=== PATIENT | female | born 1980 | race Caucasian/White ===

== ENCOUNTER 2017-11-30 08:00 | Day surgery (SDC) | payer MEDICAID ==
[2017-11-30] MEDS ORDERED: LIDOCAINE 1% 2 ML INJ ID PRN (08:22)
[2017-11-30] MEDS ORDERED: LR 1,000 ML IV ONE (08:22)
--- NOTE | 2017-11-30 09:26 | PDHPUP ---
History & Physical Update H&P update statement: This history and physical update is based on an assessment of the patient which was completed after admission or registration (within 24 hours), but prior to the surgery/procedure. H&P update: H&P reviewed & patient examined, no change in patient's condition since H&P completed
[2017-11-30] MEDS ORDERED: MIDAZOLAM 2 MG/2 ML VIAL IVP ONE (09:36)
--- NOTE | 2017-11-30 09:37 | PDANEPAE ---
ANE Past Medical History - Cardiovascular History Hx Hypertension: No Hx Arrhythmias: No Hx Chest Pain: No Hx Coronary Artery / Peripheral Vascular Disease: No Hx CHF / Valvular Disease: No Hx Palpitations: No - Pulmonary History Hx COPD: No Hx Asthma/Reactive Airway Disease: No Hx Recent Upper Respiratory Infection: No Hx Oxygen in Use at Home: No Hx Sleep Apnea: No Sleep Apnea Screening Result - Last Documented: Negative - Neurologic History Hx Cerebrovascular Accident: No Hx Seizures: No Hx Dementia: No Neurologic History Comment: chronic low back pain since had epidural w/ childbirth - Endocrine History Hx Diabetes: No - Renal History Hx Renal Disorders: No - Liver History Hx Hepatic Disorders: No - Neurological & Psychiatric Hx Hx Neurological and Psychiatric Disorders: No - Cancer History Hx Cancer: No - Congenital Disorder History Hx Congenital Disorders: No - GI History Hx Gastrointestinal Disorders: No - Other Health History Other Health History: broken right 4th toe - Chronic Pain History Chronic Pain: Yes (low back pain) - Surgical History Prior Surgeries: ACL surgery. tubal ligation. . hernia surgery ANE Review of Systems Review of Systems: - Exercise capacity METS (RN): 4 METS ANE Patient History - Allergies Allergies/Adverse Reactions: naproxen Allergy (Verified 11/20/17 14:10) whole body swelling - Home Medications Home Medications: NK [No Known Home Meds] 11/20/17 [Last Taken Unknown] - NPO status NPO Since - Liquids (Date): 11/30/17 NPO Since - Liquids (Time): 06:00 NPO Since - Solids (Date): 11/29/17 NPO Since - Solids (Time): 19:00 - Smoking Hx Smoking Status: Current some day smoker - Family Anes Hx Family Hx Anesthesia Complications: none ANE Labs/Vital Signs - Vital Signs Blood Pressure: 120/78 Heart Rate: 69 Respiratory Rate: 18 O2 Sat (%): 94 Height: 170.18 cm Weight: 114.759 kg ANE Physical Exam - Airway Neck exam: FROM Mallampati Score: Class 1 Mouth exam: normal dental/mouth exam - Pulmonary Pulmonary: no respiratory distress - Cardiovascular Cardiovascular: regular rate and rhythym - ASA Status ASA Status: II ANE Anesthesia Plan Anesthesia Plan: general endotracheal anesthesia
[2017-11-30] MEDS ORDERED: BUPIVACAINE 0.5% 30 ML SDV ONE (09:38)
[2017-11-30] MEDS ORDERED: LIDOCAINE 1% 300 MG/30 ML SDV ONE (09:38)
[2017-11-30] MEDS ORDERED: fentaNYL 100 MCG/2 ML INJ ONE ×3 (09:50→10:57)
[2017-11-30] MEDS ORDERED: DEXAMETHASONE 4 MG/ML VIAL ONE (09:50)
[2017-11-30] MEDS ORDERED: LIDOCAINE 2% 2 ML INJ ONE (09:50)
[2017-11-30] MEDS ORDERED: PROPOFOL 200 MG/20 ML VIAL ONE ×2 (09:50)
[2017-11-30] MEDS ORDERED: ONDANSETRON 4 MG/2 ML VIAL ONE (09:50)
[2017-11-30] MEDS ORDERED: ROCURONIUM 100 MG/10 ML VIAL ONE (09:50)
[2017-11-30] MEDS ORDERED: LR 500 ML IV PRN (10:58)
[2017-11-30] MEDS ORDERED: ALBUTEROL 3 ML DEYVIAL IH PRN (10:58)
[2017-11-30] MEDS ORDERED: NALOXONE HCL 0.4 MG/ML INJ IVP PRN (10:58)
[2017-11-30] MEDS ORDERED: HYDROCODONE/APAP 5/325 TAB PO PRN (10:58)
[2017-11-30] MEDS ORDERED: PROMETHAZINE HCL 25 MG/ML INJ IVP PRN (10:58)
--- NOTE | 2017-11-30 10:58 | POSTANESTH ---
Post Anesthetic Evaluation Cardiovascular Status: Normal, Stable Respiratory Status: Normal, Stable Level of Consciousness/Mental Status: Can Participate in Eval Pain Control: Adequate, Prn Tx Ordered Nausea/Vomiting Control: Adequate, Prn Tx Ordered Complications Possibly Related to Anesthesia: None Noted
[2017-11-30] MEDS: fentaNYL 100 MCG/2 ML INJ IVP PRN ×3 (11:05→11:20)
--- NOTE | 2017-11-30 11:18 | POSTOPPROG ---
Post Op Note Date of Operation: 11/30/17 Surgeon: Brandon Mccann Professional Engineer: none Anesthesiologist: Moresceau Anesthesia: GET(General Endotracheal) Pre-op Diagnosis: umbilical hernia Post-op Diagnosis: same Procedure: Open repar with 4.6 cm mesh Findings: 2 cm defect, incarcerated omentum Inf/Abcess present in the surg proc area at time of surgery?: No EBL: Minimal
[2017-11-30 12:51] VITALS: BP 126/65
--- NOTE | 2017-11-30 18:22 | GOP ---
DATE OF OPERATION: SURGEON: Brandon Mccann MD ANESTHESIA: General endotracheal anesthesia was used. ANESTHESIOLOGIST: Dr. Moralez. PREOPERATIVE DIAGNOSIS: Incarcerated umbilical hernia. POSTOPERATIVE DIAGNOSIS: Incarcerated umbilical hernia. PROCEDURE PERFORMED: Open repair with Ventralex composite hernia patch, 4.6 cm. FINDINGS: SPECIMENS: There were no specimens. ESTIMATED BLOOD LOSS: 10 mL. INDICATIONS: This is a 37-year-old woman who presents with incarcerated umbilical hernia for repair. DESCRIPTION OF PROCEDURE: The patient was brought in the operating room. After induction of endotra cheal anesthesia in a supine position, her abdomen was prepped with chlorhexidine and draped sterilel y. Time-out procedure was performed according to institutional standards. Local anesthetic was infu sed in the skin and subcutaneous tissues of the trocar sites of the umbilicus. Open curvilinear incision was made above the umbilicus. The hernia sac was dissected off the fascia in the umbilicus. The 2 cm defect is circumferentially cleared of the fascia and the hernia sac was then divided and the sac was removed. The omentum that was found was reduced into the abdominal cavi ty and circumferential dissection of the underlying fascia was performed. The mesh was then approxim ated to the anterior abdominal wall using 0 Ethibond sutures and the defect was reapproximated using 0 Ethibond sutures. The umbilicus was tacked back down to the fascia using 3-0 Vicryl. The spa ce was closed using 0 Vicryl and the skin was reapproximated in the skin level using running subcutic ular Monocryl suture. Dermabond was applied. The patient awakened, extubated, and taken to recovery room in stable condition after needle instrument sponge counts were verified to be correct. /[id number]/MODL
== END 2017-11-30 12:29 | disposition home or self-care (01) ==
LOC: FSGY 08:00
PROVIDERS: ATTEND Surgery
PROC: 0WUF0JZ Supplement Abdominal Wall with Synthetic Substitute, Open Approach (ICD-10-PCS; principal; 2017-11-30 09:30)
DX: K42.9 Umbilical hernia without obstruction or gangrene (principal)
CPT/HCPCS: C1781; J1100; J2250; J2405; J2704; J3010